=== PATIENT | female | born 1965 | race Caucasian/White ===

== ENCOUNTER → 2017-01-26 | Outpatient (CLI) | payer BC | LOC: LAB 07:08 | DX: Z00.00 Encounter for general adult medical examination without abnormal findings (principal) ==

== ENCOUNTER → 2017-01-30 | Outpatient (CLI) | payer BC | LOC: MAMMO 09:17 | DX: Z12.31 Encounter for screening mammogram for malignant neoplasm of breast (principal) | CPT/HCPCS: G0202 ==

== ENCOUNTER → 2017-02-01 | Outpatient (CLI) | payer BC | LOC: MAMMO 13:04 | DX: R92.2 Inconclusive mammogram (principal) ==

== ENCOUNTER → 2018-04-04 | Outpatient (CLI) | payer BC | LOC: LAB 10:37 | DX: N61.1 Abscess of the breast and nipple (principal); R22.0 Localized swelling, mass and lump, head; J01.90 Acute sinusitis, unspecified; B96.89 Other specified bacterial agents as the cause of diseases classified elsewhere ==

== ENCOUNTER → 2018-12-26 | Outpatient (CLI) | payer BC ==
[2018-11-20 22:14] VITALS: BP 114/55
[~2018-12-26] MED LIST: DAILY VALUE1 EACH PO; GOOD NEIGHBOR M25 M1 PO; LISINOPRIL10 MG PO; ZOFRAN ODT4 MG PO
== END ==
LOC: LAB 16:38
DX: Z11.1 Encounter for screening for respiratory tuberculosis (principal); Z02.0 Encounter for examination for admission to educational institution; L73.2 Hidradenitis suppurativa; R42 Dizziness and giddiness; J30.2 Other seasonal allergic rhinitis; E55.9 Vitamin D deficiency, unspecified; Z87.898 Personal history of other specified conditions

== ENCOUNTER → 2019-01-01 | Outpatient (CLI) | payer BC ==
[2018-11-20 22:14] VITALS: BP 114/55
== END ==
LOC: RAD 08:17
DX: Z11.1 Encounter for screening for respiratory tuberculosis (principal); Z02.0 Encounter for examination for admission to educational institution; G93.89 Other specified disorders of brain; E55.9 Vitamin D deficiency, unspecified; J30.2 Other seasonal allergic rhinitis; L73.2 Hidradenitis suppurativa; R42 Dizziness and giddiness

== ENCOUNTER → 2019-01-03 | Outpatient (CLI) | payer BC ==
[2018-11-20 22:14] VITALS: BP 114/55
[2019-01-07 01:14] LABS: ANA SCREEN with REFLEX Negative (Negative)
[2019-01-07 10:19] LABS: LYME DISEASE EIA Negative (Negative)
== END ==
LOC: LAB 14:39
PROVIDERS: Psychiatry & Neurology Neurology
DX: G35 Multiple sclerosis (principal); G62.9 Polyneuropathy, unspecified; E55.9 Vitamin D deficiency, unspecified; R73.02 Impaired glucose tolerance (oral); M79.7 Fibromyalgia; G40.909 Epilepsy, unspecified, not intractable, without status epilepticus; E53.9 Vitamin B deficiency, unspecified; E61.1 Iron deficiency; E07.9 Disorder of thyroid, unspecified; E53.1 Pyridoxine deficiency; E61.2 Magnesium deficiency; G43.709 Chronic migraine without aura, not intractable, without status migrainosus; G25.81 Restless legs syndrome; Z79.899 Other long term (current) drug therapy

== ENCOUNTER → 2019-01-09 | Outpatient (CLI) | payer BC ==
[2018-11-20 22:14] VITALS: BP 114/55
== END ==
LOC: VAS 07:46 → RAD 08:00 → VAS 08:00
DX: R42 Dizziness and giddiness (principal)

== ENCOUNTER → 2019-08-12 | Outpatient (CLI) | payer BC ==
[2018-11-20 22:14] VITALS: BP 114/55
[2019-08-12 16:56] LABS: BASO # 0.1 (0.02-0.10); EOS # 0.2 (0.04-0.40); EOS % 2.5 % (1.0-5.0); HEMATOCRIT 40.7 % (37.0-47.0); HEMOGLOBIN 13.2 g/dL (12.5-16.0); LYMPH# 2.5 (1.50-4.00); MEAN CELL VOLUME 96 fl (78-100); MEAN CORPUSCULAR HEMOGLOBIN 31 pg (27-31); MEAN CORPUSCULAR HGB CONC 32 g/dL (33-37); MONO # 0.6 (0.20-0.80); NEU # 3.2 (1.40-6.50); PLATELET COUNT 246 K/mm3 (130-400); RED BLOOD COUNT 4.25 M/mm3 (4.10-5.30); RED CELL DISTRIBUTION WIDTH 12.9 % (11.5-14.5); WHITE BLOOD COUNT 6.5 K/mm3 (4.8-10.8)
[2019-08-12 17:05] LABS: POTASSIUM 3.8 mmol/L (3.5-5.1)
[2019-08-12 17:06] LABS: ALBUMIN 4.4 g/dL (3.5-5.0)
[2019-08-12 17:07] LABS: CALCIUM 10.3 mg/dL (8.3-10.5)
[2019-08-12 17:08] LABS: TOTAL PROTEIN 7.2 g/dL (6.4-8.3)
[2019-08-12 17:10] LABS: TOTAL BILIRUBIN 0.3 mg/dL (0.2-1.2)
== END ==
LOC: LAB 16:45
PROVIDERS: Physician Assistant
DX: Z13.29 Encounter for screening for other suspected endocrine disorder (principal); Z13.220 Encounter for screening for lipoid disorders; F32.9 Major depressive disorder, single episode, unspecified; L73.2 Hidradenitis suppurativa; E55.9 Vitamin D deficiency, unspecified; N61.0 Mastitis without abscess; I95.1 Orthostatic hypotension; E78.2 Mixed hyperlipidemia

== ENCOUNTER → 2019-11-21 | Outpatient (CLI) | payer BC ==
[2018-11-20 22:14] VITALS: BP 114/55
== END ==
LOC: LAB 11-20 08:32
DX: Z01.818 Encounter for other preprocedural examination (principal); Z20.828 Contact with and (suspected) exposure to other viral communicable diseases

== ENCOUNTER → 2019-11-24 | Day surgery (SDC) | payer BC ==
[2018-11-20 22:14] VITALS: BP 114/55
== END ==
LOC: MSO 09-01 09:18
DX: Z12.11 Encounter for screening for malignant neoplasm of colon (principal); D12.2 Benign neoplasm of ascending colon; I10 Essential (primary) hypertension; E53.8 Deficiency of other specified B group vitamins; E78.5 Hyperlipidemia, unspecified; F32.9 Major depressive disorder, single episode, unspecified; F17.210 Nicotine dependence, cigarettes, uncomplicated; R42 Dizziness and giddiness; L73.2 Hidradenitis suppurativa; Z88.1 Allergy status to other antibiotic agents; Z79.899 Other long term (current) drug therapy
CPT/HCPCS: 00811; J2704; J7120

== ENCOUNTER → 2020-01-16 | Outpatient (CLI) | payer BC ==
[2018-11-20 22:14] VITALS: BP 114/55
[2020-01-18 12:17] LABS: ANA SCREEN with REFLEX Negative (Negative)
== END ==
LOC: LAB 13:47
PROVIDERS: Physical Medicine & Rehabilitation
DX: R53.83 Other fatigue (principal)

== ENCOUNTER → 2020-02-25 | Outpatient (CLI) | payer BC ==
[2018-11-20 22:14] VITALS: BP 114/55
== END ==
LOC: LAB 14:03
DX: S21.002A Unspecified open wound of left breast, initial encounter (principal); L03.90 Cellulitis, unspecified

== ENCOUNTER → 2021-07-21 | Outpatient (CLI) | payer BC ==
[2021-07-21 08:57] LABS: BASO # 0.04 K/mm3 (0.02-0.10); EOS # 0.03 K/mm3 (0.04-0.40); EOS % 0.6 % (1.0-5.0); HEMOGLOBIN 14.2 g/dL (12.5-16.0); LYMPH# 1.55 K/mm3 (1.50-4.00); MEAN CELL VOLUME 95 fl (78-100); MEAN CORPUSCULAR HEMOGLOBIN 32 pg (27-31); MEAN CORPUSCULAR HGB CONC 33 g/dL (33-37); MEAN PLATELET VOLUME 10.6 fl (7.4-10.4); MONO # 0.43 K/mm3 (0.20-0.80); NEU # 3.35 K/mm3 (1.40-6.50); PLATELET COUNT 260 K/mm3 (130-400); RED BLOOD COUNT 4.51 M/mm3 (4.10-5.30); RED CELL DISTRIBUTION WIDTH 12.3 % (11.5-14.5); WHITE BLOOD COUNT 5.4 K/mm3 (4.8-10.8)
[2021-07-21 08:58] LABS: ALBUMIN 4.3 g/dL (3.5-5.0)
[2021-07-21 08:59] LABS: CALCIUM 9.9 mg/dL (8.3-10.5)
[2021-07-21 09:01] LABS: TOTAL PROTEIN 7.6 g/dL (6.4-8.3)
[2021-07-21 09:02] LABS: TOTAL BILIRUBIN 0.8 mg/dL (0.2-1.2)
[2021-07-21 09:07] LABS: MAGNESIUM 1.97 mg/dL (1.60-2.60)
== END ==
LOC: LAB 08:10
PROVIDERS: Physician Assistant
DX: Z13.29 Encounter for screening for other suspected endocrine disorder (principal); Z00.00 Encounter for general adult medical examination without abnormal findings; R25.2 Cramp and spasm

== ENCOUNTER → 2022-03-07 | Outpatient (CLI) | payer BC ==
[2022-03-07 16:54] LABS: BASO # 0.05 K/mm3 (0.02-0.10); EOS # 0.02 K/mm3 (0.04-0.40); EOS % 0.3 % (1.0-5.0); HEMATOCRIT 41.2 % (37.0-47.0); HEMOGLOBIN 13.6 g/dL (12.5-16.0); LYMPH# 2.03 K/mm3 (1.50-4.00); MEAN CELL VOLUME 95 fl (78-100); MEAN CORPUSCULAR HEMOGLOBIN 32 pg (27-31); MEAN CORPUSCULAR HGB CONC 33 g/dL (33-37); MEAN PLATELET VOLUME 9.9 fl (7.4-10.4); MONO # 0.43 K/mm3 (0.20-0.80); PLATELET COUNT 288 K/mm3 (130-400); RED BLOOD COUNT 4.32 M/mm3 (4.10-5.30); WHITE BLOOD COUNT 6.5 K/mm3 (4.8-10.8)
[2022-03-07 17:11] LABS: ALBUMIN 4.6 g/dL (3.5-5.0); POTASSIUM 3.8 mmol/L (3.5-5.1)
[2022-03-07 17:12] LABS: CALCIUM 10.5 mg/dL (8.3-10.5)
[2022-03-07 17:13] LABS: TOTAL PROTEIN 7.9 g/dL (6.4-8.3)
[2022-03-07 17:15] LABS: PARTIAL THROMBOPLASTIN TIME 23.7 SECONDS (21.0-32.0); PROTHROMBIN TIME 9.7 SECONDS (9.0-12.0); TOTAL BILIRUBIN 0.4 mg/dL (0.2-1.2)
== END ==
LOC: LAB 16:39
PROVIDERS: Physician Assistant
DX: Z13.29 Encounter for screening for other suspected endocrine disorder (principal); E78.5 Hyperlipidemia, unspecified; K90.9 Intestinal malabsorption, unspecified; R58 Hemorrhage, not elsewhere classified; R40.0 Somnolence; R41.840 Attention and concentration deficit